=== PATIENT | male | born 1970 | race Caucasian/White ===

== ENCOUNTER 2025-01-01 12:19 | Emergency (ER) | payer MEDICAID, SELFPAY ==
[2025-01-01 12:31] VITALS: BP 98/64; PULSE 97; RESP 18; TEMP 36.5; O2SAT 99; BMI 29.2
--- NOTE | 2025-01-01 12:34 | XR_ITS ---
WS: [id number] Exam: XR tibia fibula LT 2V [id number] Date/Time of Exam: 01/01/2025 12:34 PM Reason For Exam: dog bite No fracture noted. Articular relationships at the knee and ankle are normal as visualized. There may be a soft tissue injury along the upper lateral aspect of the lower leg. XR/XR tibia fibula LT 2V [id number] IMPRESSION: 1. No bony injury.
--- NOTE | 2025-01-01 12:35 | W.ED.ANIMALB ---
HPI - Animal Bite General: Chief Complaint: Animal Bite Stated Complaint: Dog Bite Time Seen by Provider: 01/01/25 12:31 Source: patient Mode of arrival: EMS Limitations: no limitations History of Present Illness: Patient is a 54-year-old male presents to ED today via EMS for evaluation of a dog bite. Patient states the dog is the neighbor's dog and is a menace and has attacked other people before. He knows nothing of the dog's immunization status. Patient states his last tetanus was 2 years ago. He sustained bite wounds to his left lower extremity and his right elbow. He is not having any bony tenderness to the elbow and has full range of motion here. He has scattered abrasions to the right lower extremity without much tenderness and nothing that requires closure. He does have multiple lacerations and puncture wounds to the left tib-fib area. He denies numbness, tingling, loss of sensation. MD complaint: animal bite Onset (ago): hour(s) Animal: dog Description of animal: immunizations unknown Mechanism: bite Location - Extremities: Right: elbow and Bilateral: lower leg Context: unprovoked Associated symptoms: Reports no associated symptoms Related Data Home Medications ?Medication ?Instructions ?Recorded ?Confirmed amoxicillin 875 mg-potassium 1 tab PO Q12H 01/01/25 01/01/25 clavulanate 125 mg tablet atorvastatin 20 mg tablet 20 mg PO DAILY 01/01/25 01/01/25 cyclobenzaprine 10 mg tablet 20 mg PO BID 01/01/25 01/01/25 donepezil 10 mg tablet 10 mg PO QPM 01/01/25 01/01/25 fluticasone propionate 50 2 spray intranasal DAILY 01/01/25 01/01/25 mcg/actuation nasal spray,suspension lisinopril 10 1 tab PO DAILY 01/01/25 01/01/25 mg-hydrochlorothiazide 12.5 mg tablet naloxone 4 mg/actuation nasal 4 mg intranasal PRN PRN OVERDOSE 01/01/25 01/01/25 spray (Narcan) pregabalin 150 mg capsule 150 mg PO BID 01/01/25 01/01/25 ropinirole 2 mg tablet 2 mg PO BID 01/01/25 01/01/25 sildenafil 25 mg tablet 25 mg PO PRN PRN PRN 01/01/25 01/01/25 testosterone cypionate 200 mg/mL 200 mg IM Q28D 01/01/25 01/01/25 intramuscular oil Previous Rx's ?Medication ?Instructions ?Recorded amoxicillin 875 mg-potassium 1 tab PO BID #14 tabs 01/01/25 clavulanate 125 mg tablet hydrocodone 5 mg-acetaminophen 325 1 tab PO .q4-6 PRN pain #14 tabs 01/01/25 mg tablet Allergies Allergy/AdvReac Type Severity Reaction Status Date / Time No Known Allergies Allergy Verified 01/01/25 12:40 Physical Exam Const: COMMON NORMALS: average body habitus, patient oriented x3, no limitations, healthy appearing, alert and well nourished GENERAL APPEARANCE: cooperative and in distress (uncomfortable due to pain) Resp: COMMON NORMALS: normal respiratory effort and clear to auscultation bilaterally AUSCULTATION: clear to auscultation bilaterally Cardio: COMMON NORMALS: regular rate and regular rhythm RATE: regular rate RHYTHM: regular rhythm Extremity: COMMON NORMALS: full ROM and capillary refill normal GENERAL: Yes normal exam except as noted OTHER: all joints with full ROM; no tendon involvement; no vascular involvement; all extremities NV intact with intact sensation and distal pulses abrasions to R LE without any need for closure EXTREMITY IMAGE (FRONT):  1. laceration 2. laceration 3. 4. 5. 3 scattered punture topete 6. laceration Neuro: COMMON NORMALS: patient oriented x3, moves all extremities, no focal motor deficits and no sensory deficits noted SENSORIUM/ORIENTATION: Yes alert Skin: NARRATIVE SKIN EXAM: dog bites-see above Procedures Laceration Laceration 1: Site: lower extremity Side (If applicable): left Size (cm): 4 Description: linear Depth: simple, single layer Local Anesthetic: lidocaine 2% Amount of anesthesia used (mL): 3.0 Pre-repair: wound explored and irrigated extensively Skin layer closed with: nylon Size (cm): 4-0 Number of sutures: 9 Technique: simple, interrupted Laceration 2: Site: lower extremity Side (If applicable): left Size (cm): 1.5 Description: linear Depth: simple, single layer Local Anesthetic: lidocaine 2% Amount of anesthesia used (mL): 1.5 Pre-repair: wound explored and irrigated extensively Skin layer closed with: nylon Size (cm): 4-0 Number of sutures: 2 Technique: simple, interrupted Laceration 3: Site: upper extremity (elbow) Side (If applicable): right Size (cm): 2.5 Description: irregular Depth: simple, single layer Local Anesthetic: lidocaine 2% Amount of anesthesia used (mL): 2.0 Pre-repair: wound explored and irrigated extensively Skin layer closed with: nylon Size (cm): 4-0 Number of sutures: 5 Technique: simple, interrupted Course Vital Signs: Vital signs: Vital Signs Temperature 97.7 F 01/01/25 12:31 Pulse Rate 97 01/01/25 12:31 Respiratory Rate 21 H 01/01/25 13:16 Blood Pressure 98/64 01/01/25 12:31 Pulse Oximetry 99 01/01/25 12:31 Oxygen Delivery Me thod Room Air 01/01/25 12:31 MDM - Animal Bite Medical Decision Making XRs of the L tib/fib performed and negative. No obvious tendon trauma noted. He did have multiple lacerations and puncture wounds to the left lower extremity that were copiously irrigated and repaired. He had a laceration to the right elbow. 19 stitches total were placed. Tetanus is up-to-date. He will be placed on Augmentin. He was started on rabies PEP. Strict return ED precautions discussed. Wound care/infection precautions discussed. Please officer was here to take report. Differential Diagnosis Likely bite by animal and dog bite Medical Records I reviewed the patient's medical records. Lab Data Radiology Impressions Tibia/Fibula X-Ray 01/01/25 12:34 IMPRESSION: 1. No bony injury. All radiology interpretation(s) finalized by discharge Discharge Plan Discharge Patient Disposition: Home Clinical Impression: Bite by animal, Dog bite Condition: Stable Prescriptions: New hydrocodone-acetaminophen 5-325 mg tablet 1 tab PO .q4-6 PRN (Reason: pain) Qty: 14 0RF amoxicillin-pot clavulanate 875-125 mg tablet 1 tab PO BID Qty: 14 0RF No Action cyclobenzaprine 10 mg tablet 20 mg PO BID atorvastatin 20 mg tablet 20 mg PO DAILY donepezil 10 mg tablet 10 mg PO QPM sildenafil 25 mg tablet 25 mg PO PRN PRN (Reason: PRN) ropinirole 2 mg tablet 2 mg PO BID lisinopril-hydrochlorothiazide 10-12.5 mg tablet 1 tab PO DAILY testosterone cypionate 200 mg/mL oil 200 mg IM Q28D fluticasone propionate 50 mcg/actuation spray,suspension 2 spray intranasal DAILY amoxicillin-pot clavulanate 875-125 mg tablet 1 tab PO Q12H pregabalin 150 mg capsule 150 mg PO BID naloxone [Narcan] 4 mg/actuation spray,non-aerosol 4 mg INTRANASAL PRN PRN (Reason: OVERDOSE) Discharge Orders: Discharge ED (Routine); Ordered 01/01/25 Ordered By: Raisa Ellison Patient Instructions: Rabies Vaccine (By injection), Rabies Immune Globulin (By injection), Animal Bite (ED), Care For Your Stitches (DC), Laceration (DC), Opioid Safety, Pain Management Activity Restrictions/Additional Instructions: Keep wound/laceration clean with warm soap and water twice daily. Monitor for signs of infection such as redness, swelling, increased pain, or drainage. Please seek medical re-evaluation if these occur. If you received sutures today these will need to be removed (unless you were told by the provider that they are absorbable). The provider should have discussed with you the length of time until removal-7 to 10 days. Fill your antibiotics and start them immediately. You were given a schedule for the remainder of your rabies postexposure prophylaxis series to be completed through our infusion center. Print Language: Syrian Coding Level of Care Code ED Director Cpg for Emperatriz Mitchell
[2025-01-01] MEDS: ondansetron 2 mg/ML SDV 2 mL 4 MG IM (13:15)
[2025-01-01 13:16] VITALS: RESP 21
[2025-01-01] MEDS: morphine 4 mg/mL SDV 1 mL IM (13:16)
[2025-01-01] MEDS: rabies vaccine 2.5 unit SDV IM (13:19)
[2025-01-01] MEDS: rabies IG 300 unit/mL SDV 1 mL 1920 UNIT IM (13:36)
[2025-01-01 14:44] VITALS: BP 109/68; PULSE 94; O2SAT 94
== END 2025-01-01 14:46 | disposition home or self-care (01) ==
PROVIDERS: Emergency Provider Physician Assistant
DX: S81.852A Open bite, left lower leg, initial encounter (principal); S51.051A Open bite, right elbow, initial encounter; W54.0XXA Bitten by dog, initial encounter; Z29.14 Encounter for prophylactic rabies immune globulin; Z20.3 Contact with and (suspected) exposure to rabies
CPT/HCPCS: 12004; 73590; 90375; 90471; 90675; 96372; 99284; E0114; J2270; J2405

== ENCOUNTER 2025-01-04 11:18 | Day surgery (SDC) | payer MEDICAID, SELFPAY ==
[2025-01-04] VITALS (13 sets, daily range): BP systolic 104–136; BP diastolic 58–79; PULSE 76–100; RESP 10–18; TEMP 36.1–37.4; O2SAT 92–99
--- NOTE | 2025-01-04 11:51 | W.ED.RECABL ---
Documented by User: BOGDAN Carcamo 01/04/25 14:01 HPI - Recheck/Abnormal Lab/Rx General: Chief Complaint: Extremity Injury, Lower Stated Complaint: lt leg injury / rabies Time Seen by Provider: 01/04/25 11:21 Source: patient Mode of arrival: wheelchair Limitations: no limitations History of Present Illness: Patient is a 54-year-old male presents to ED today for concerns of a possible infection to a dog bite to his left lower extremity. Patient was seen here in the emergency department approximate 3 days ago. He sustained several dog bite wounds to his left lower extremity, minor abrasions to his right lower extremity, and a laceration near his right elbow. All wounds were copiously irrigated and repaired. He has been compliant with his Augmentin since discharge. His tetanus was updated at that visit. XRs of the left tibia/fibula were obtained at the last visit and unremarkable. He states he has noticed redness, mild warmth, and drainage from one of the incisions to the left leg. All of the other incisions appear to be healing well. He reports chills but no documented fevers. MD complaint: wound re-check Initial visit (ago): day(s) Initial visit for: animal bite Returns today for: wound recheck and rabies shot Symptoms since prior visit: worsening redness and worsening discharge Associated symptoms: chills Related Data Home Medications ?Medication ?Instructions ?Recorded ?Confirmed atorvastatin 20 mg tablet 20 mg PO DAILY 01/01/25 01/04/25 cyclobenzaprine 10 mg tablet 20 mg PO BID 01/01/25 01/04/25 donepezil 10 mg tablet 10 mg PO QPM 01/01/25 01/04/25 fluticasone propionate 50 2 spray intranasal DAILY 01/01/25 01/04/25 mcg/actuation nasal spray,suspension lisinopril 10 1 tab PO DAILY 01/01/25 01/04/25 mg-hydrochlorothiazide 12.5 mg tablet naloxone 4 mg/actuation nasal 4 mg intranasal PRN PRN OVERDOSE 01/01/25 01/04/25 spray (Narcan) pregabalin 150 mg capsule 150 mg PO BID 01/01/25 01/04/25 ropinirole 2 mg tablet 2 mg PO BID 01/01/25 01/04/25 sildenafil 25 mg tablet 25 mg PO PRN PRN PRN 01/01/25 01/04/25 testosterone cypionate 200 mg/mL 200 mg IM Q28D 01/01/25 01/04/25 intramuscular oil Previous Rx's ?Medication ?Instructions ?Recorded amoxicillin 875 mg-potassium 1 tab PO BID #14 tabs 01/01/25 clavulanate 125 mg tablet hydrocodone 5 mg-acetaminophen 325 1 tab PO .q4-6 PRN pain #14 tabs 01/01/25 mg tablet Allergies Allergy/AdvReac Type Severity Reaction Status Date / Time No Known Allergies Allergy Verified 01/01/25 12:40 Review of Systems Const: Reports: chills; Denies: fever(s), body aches, fatigue or malaise Card: Denies: chest pain Resp: Denies: dyspnea Musc: Reports: extremity pain and extremity swelling; Denies: joint pain, joint swelling or joint redness Skin/Breast: Reports: other (dog bite wounds/lacerations/abrasions) Neuro: Denies: headache(s), numbness in extremities, weakness in extremities or sensory changes Physical Exam Const: COMMON NORMALS: no acute distress, average body habitus, patient oriented x3, no limitations, healthy appearing, alert and well nourished Resp: COMMON NORMALS: normal respiratory effort and clear to auscultation bilaterally AUSCULTATION: clear to auscultation bilaterally Cardio: COMMON NORMALS: regular rate and regular rhythm RATE: regular rate RHYTHM: regular rhythm Extremity: COMMON NORMALS: capillary refill normal and no calf tenderness GENERAL: Yes normal exam except as noted OTHER: pain/edema to L lateral conn; he has multiple laceration repairs/puncture wounds from dog bite 3 days ago; most of these appear well healing apart from the larger lateral laceration which has surrounding erythema/warmth; and discharge from the wound patient does have pain here but can wiggle his toes and has flexion/extension of ankle joint-although painful I do not feel pain is out of proportion to exam; extremity is neurovascularly intact Neuro: COMMON NORMALS: patient oriented x3, moves all extremities, no focal motor deficits and no sensory deficits noted SENSORIUM/ORIENTATION: Yes alert Skin: NARRATIVE SKIN EXAM: see above; laceration near R elbow is well healing, puncture wounds/abrasions to bilateral LEs appear to be healing well; infection involving larger laceration L lateral lower leg Course Consultations: Consultation #1: Dr. Cheung-will take to OR for washout later today-requesting he stay for additional IV abx following debridement/washout; requesting CT scan with contrast; request adding Vanc to his Unasyn Vital Signs: Vital signs: Vital Signs Temperature 99.3 F 01/04/25 11:38 Pulse Rate 100 01/04/25 11:38 Respiratory Rate 16 01/04/25 11:38 Blood Pressure 117/66 01/04/25 11:38 Pulse Oximetry 92 01/04/25 11:38 Oxygen Delivery Me thod Room Air 01/04/25 11:38 MDM - Recheck/Abnormal Lab/Rx Medical Decision Making Patient is a 54-year-old male here with an infected dog bite wound involving the lateral aspect of the left lower leg. Patient has been compliant with his Augmentin since the wound was repaired 3 days ago. His tetanus was updated then. He is on day 3 of his rabies PEP so rabies vaccination was provided today. Spoke to Dr. Cheung who will plan for OR washout-he recommended patient stay overnight following this for additional IV antibiotics but patient adamantly declines. States he has to be home to take care of his dog. We discussed many options to try and get someone else to care for animal but again he declines and is adamant he goes home after the washout. He was started on IV antibiotics here in the ED. CT scan showing soft tissue edema compatible with infection/cellulitis. No drainable fluid collection or abscess. Labs show a normal white count. His vital signs are stable. He does have mildly elevated CRP/ESR. Medical Records I reviewed the patient's medical records. Lab Data I reviewed the patient's lab results. 01/04/25 12:24 01/04/25 12:24 Radiology Impressions Lower Extremity CT 01/04/25 12:17 IMPRESSION: 1. Diffuse prominent soft tissue edema involving the lower extremity extending from the knee to the ankle compatible with soft tissue infection and cellulitis. No evidence of drainable fluid collection or abscess at this time. 2. No evidence of osteomyelitis. Laboratory Results WBC 10.38 10^3/uL (3.29-11.43) 01/04/25 12:24 RBC 4.33 10^6/uL (3.85-5.65) 01/04/25 12:24 Hgb 12.10 g/dL (11.27-16.99) 01/04/25 12:24 Hct 37.5 % (37-53) 01/04/25 12:24 MCV 86.6 fl (82-101) 01/04/25 12:24 MCH 27.9 pg (27-33) 01/04/25 12:24 MCHC 32.3 g/dL (30-55) 01/04/25 12:24 RDW 13.7 % (12.1-15.1) 01/04/25 12:24 Plt Count 307 10^3/cmm (157-399) 01/04/25 12:24 MPV 9.5 fL (7.4-10.4) 01/04/25 12:24 Neut % (Auto) 75.0 % 01/04/25 12:24 Lymph % (Auto) 17.7 % 01/04/25 12:24 Camp % (Auto) 4.0 % 01/04/25 12:24 Eos % (Auto) 2.6 % 01/04/25 12:24 Baso % (Auto) 0.4 % 01/04/25 12:24 Neut # (Auto) 7.78 10^3/uL (1.8-7.7) H 01/04/25 12:24 Lymph # (Auto) 1.8 10^3/uL (0.8-4.8) 01/04/25 12:24 Camp # (Auto) 0.4 10^3/uL (0.2-0.9) 01/04/25 12:24 Eos # (Auto) 0.3 10^3/uL (0.0-0.8) 01/04/25 12:24 Baso # (Auto) 0.0 10^3/uL (0.0-0.1) 01/04/25 12:24 Nucleated RBC % (auto) 0 % 01/04/25 12:24 Nucleated RBCs # 0.0 /100WBC 01/04/25 12:24 ESR 31 mm/hr (0-10) H 01/04/25 12:24 Sodium 138 mmol/L (136-145) 01/04/25 12:24 Potassium 4.4 mmol/L (3.5-5.1) 01/04/25 12:24 Chloride 100 mmol/L (98-107) 01/04/25 12:24 Carbon Dioxide 24 mmol/L (22-29) 01/04/25 12:24 Anion Gap 18.4 (5-19) 01/04/25 12:24 BUN 18 mg/dL (6-20) 01/04/25 12:24 Creatinine 1.2 mg/dL (0.7-1.2) 01/04/25 12:24 GFR Calculation 63.1 mL/min (90-130) L 01/04/25 12:24 Glucose 94 mg/dL (65-115) 01/04/25 12:24 Calculated Osmolality 288 mOsm/kg (285-295) 01/04/25 12:24 Calcium 9.7 mg/dL (8.5-10.5) 01/04/25 12:24 Total Bilirubin 0.3 mg/dL (0.15-1.2) 01/04/25 12:24 AST 43 U/L (0-40) H 01/04/25 12:24 ALT 55 U/L (0-41) H 01/04/25 12:24 Alkaline Phosphatase 108 U/L (40-130) 01/04/25 12:24 C-Reactive Protein 51.0 mg/L (0.0-4.9) H 01/04/25 12:24 Total Protein 7.1 g/dL (6.6-8.7) 01/04/25 12:24 Albumin 3.8 g/dL (3.5-5.2) 01/04/25 12:24 Globulin 3.3 g/dL (1.3-4.6) 01/04/25 12:24 All radiology interpretation(s) finalized by discharge Discharge Plan Discharge Clinical Impression: Dog bite of left lower leg with infection Qualifiers: Encounter type: initial encounter Qualified Code(s): S81.852A - Open bite, left lower leg, initial encounter Condition: Stable Coding Level of Care Code ED Straw Boss for Jakeg Paula Documented by User: Dennis Tyson DO 01/04/25 14:11 HPI - Recheck/Abnormal Lab/Rx General: Chief Complaint: Extremity Injury, Lower Stated Complaint: lt leg injury / rabies Time Seen by Provider: 01/04/25 11:21 Related Data Home Medications ?Medication ?Instructions ?Recorded ?Confirmed atorvastatin 20 mg tablet 20 mg PO DAILY 01/01/25 01/04/25 cyclobenzaprine 10 mg tablet 20 mg PO BID 01/01/25 01/04/25 donepezil 10 mg tablet 10 mg PO QPM 01/01/25 01/04/25 fluticasone propionate 50 2 spray intranasal DAILY 01/01/25 01/04/25 mcg/actuation nasal spray,suspension lisinopril 10 1 tab PO DAILY 01/01/25 01/04/25 mg-hydrochlorothiazide 12.5 mg tablet naloxone 4 mg/actuation nasal 4 mg intranasal PRN PRN OVERDOSE 01/01/25 01/04/25 spray (Narcan) pregabalin 150 mg capsule 150 mg PO BID 01/01/25 01/04/25 ropinirole 2 mg tablet 2 mg PO BID 01/01/25 01/04/25 sildenafil 25 mg tablet 25 mg PO PRN PRN PRN 01/01/25 01/04/25 testosterone cypionate 200 mg/mL 200 mg IM Q28D 01/01/25 01/04/25 intramuscular oil Previous Rx's ?Medication ?Instructions ?Recorded amoxicillin 875 mg-potassium 1 tab PO BID #14 tabs 01/01/25 clavulanate 125 mg tablet hydrocodone 5 mg-acetaminophen 325 1 tab PO .q4-6 PRN pain #14 tabs 01/01/25 mg tablet Allergies Allergy/AdvReac Type Severity Reaction Status Date / Time No Known Allergies Allergy Verified 01/01/25 12:40 Course Vital Signs: Vital signs: Vital Signs Temperature 99.3 F 01/04/25 11:38 Pulse Rate 100 01/04/25 11:38 Respiratory Rate 16 01/04/25 11:38 Blood Pressure 117/66 01/04/25 11:38 Pulse Oximetry 92 01/04/25 11:38 Oxygen Delivery Me thod Room Air 01/04/25 11:38 MDM - Recheck/Abnormal Lab/Rx Medical Decision Making Patient is a 54-year-old male here with an infected dog bite wound involving the lateral aspect of the left lower leg. Patient has been compliant with his Augmentin since the wound was repaired 3 days ago. His tetanus was updated then. He is on day 3 of his rabies PEP so rabies vaccination was provided today. Spoke to Dr. Cheung who will plan for OR washout-he recommended patient stay overnight following this for additional IV antibiotics but patient adamantly declines. States he has to be home to take care of his dog. We discussed many options to try and get someone else to care for animal but again he declines and is adamant he goes home after the washout. He was started on IV antibiotics here in the ED. CT scan showing soft tissue edema compatible with infection/cellulitis. No drainable fluid collection or abscess. Labs show a normal white count. His vital signs are stable. He does have mildly elevated CRP/ESR. Chart reviewed and patient discussed with midlevel. Agree with assessment and plan. Lab Data 01/04/25 12:24 01/04/25 12:24 Radiology Impressions Lower Extremity CT 01/04/25 12:17 IMPRESSION: 1. Diffuse prominent soft tissue edema involving the lower extremity extending from the knee to the ankle compatible with soft tissue infection and cellulitis. No evidence of drainable fluid collection or abscess at this time. 2. No evidence of osteomyelitis. Laboratory Results WBC 10.38 10^3/uL (3.29-11.43) 01/04/25 12:24 RBC 4.33 10^6/uL (3.85-5.65) 01/04/25 12:24 Hgb 12.10 g/dL (11.27-16.99) 01/04/25 12:24 Hct 37.5 % (37-53) 01/04/25 12:24 MCV 86.6 fl (82-101) 01/04/25 12:24 MCH 27.9 pg (27-33) 01/04/25 12:24 MCHC 32.3 g/dL (30-55) 01/04/25 12:24 RDW 13.7 % (12.1-15.1) 01/04/25 12:24 Plt Count 307 10^3/cmm (157-399) 01/04/25 12:24 MPV 9.5 fL (7.4-10.4) 01/04/25 12:24 Neut % (Auto) 75.0 % 01/04/25 12:24 Lymph % (Auto) 17.7 % 01/04/25 12:24 Camp % (Auto) 4.0 % 01/04/25 12:24 Eos % (Auto) 2.6 % 01/04/25 12:24 Baso % (Auto) 0.4 % 01/04/25 12:24 Neut # (Auto) 7.78 10^3/uL (1.8-7.7) H 01/04/25 12:24 Lymph # (Auto) 1.8 10^3/uL (0.8-4.8) 01/04/25 12:24 Camp # (Auto) 0.4 10^3/uL (0.2-0.9) 01/04/25 12:24 Eos # (Auto) 0.3 10^3/uL (0.0-0.8) 01/04/25 12:24 Baso # (Auto) 0.0 10^3/uL (0.0-0.1) 01/04/25 12:24 Nucleated RBC % (auto) 0 % 01/04/25 12:24 Nucleated RBCs # 0.0 /100WBC 01/04/25 12:24 ESR 31 mm/hr (0-10) H 01/04/25 12:24 Sodium 138 mmol/L (136-145) 01/04/25 12:24 Potassium 4.4 mmol/L (3.5-5.1) 01/04/25 12:24 Chloride 100 mmol/L (98-107) 01/04/25 12:24 Carbon Dioxide 24 mmol/L (22-29) 01/04/25 12:24 Anion Gap 18.4 (5-19) 01/04/25 12:24 BUN 18 mg/dL (6-20) 01/04/25 12:24 Creatinine 1.2 mg/dL (0.7-1.2) 01/04/25 12:24 GFR Calculation 63.1 mL/min (90-130) L 01/04/25 12:24 Glucose 94 mg/dL (65-115) 01/04/25 12:24 Calculated Osmolality 288 mOsm/kg (285-295) 01/04/25 12:24 Calcium 9.7 mg/dL (8.5-10.5) 01/04/25 12:24 Total Bilirubin 0.3 mg/dL (0.15-1.2) 01/04/25 12:24 AST 43 U/L (0-40) H 01/04/25 12:24 ALT 55 U/L (0-41) H 01/04/25 12:24 Alkaline Phosphatase 108 U/L (40-130) 01/04/25 12:24 C-Reactive Protein 51.0 mg/L (0.0-4.9) H 01/04/25 12:24 Total Protein 7.1 g/dL (6.6-8.7) 01/04/25 12:24 Albumin 3.8 g/dL (3.5-5.2) 01/04/25 12:24 Globulin 3.3 g/dL (1.3-4.6) 01/04/25 12:24 Discharge Plan Discharge Clinical Impression: Dog bite of left lower leg with infection Qualifiers: Encounter type: initial encounter Qualified Code(s): S81.852A - Open bite, left lower leg, initial encounter Condition: Stable Coding Level of Care Code ED Straw Boss for Emperatriz Mitchell
--- NOTE | 2025-01-04 12:17 | CT_ITS ---
WS: [id number] Contrast-enhanced CT LEFT lower leg TECHNIQUE: with coronal and sagittal reformatted images. CLINICAL INFORMATION: dog bite infection COMPARISON: None. DLP: 507.[address] scans at [facility] use at least one of these dose optimization techniques: automated exposure control; mA and/or kV adjustment per patient size (includes targeted exams where dose is matched to clinical indication); or iterative reconstruction. FINDINGS: Normal anatomic alignment. No acute fractures. Diffuse soft tissue edema LEFT lower extremity. Normal fibula. Normal tibia. No acute fractures. Degenerative arthritis partially visualized knee and ankle. Diffuse soft tissue edema lower extremity with skin thickening and soft tissue induration extending from the knee to the ankle. Findings compatible with soft tissue infection and cellulitis. Edema extends into the intermuscular soft tissues. No drainable abscess or drainable fluid collection. CT/CT lower leg LT w con [id number] IMPRESSION: 1. Diffuse prominent soft tissue edema involving the lower extremity extending from the knee to the ankle compatible with soft tissue infection and celluliti s. No evidence of drainable fluid collection or abscess at this time. 2. No evidence of osteomyelitis.
[2025-01-04] MEDS: ondansetron 2 mg/ML SDV 2 mL 4 MG IVP ×2 (12:22→16:55)
[2025-01-04] MEDS: morphine 4 mg/mL SDV 1 mL IVP (12:22)
[2025-01-04 12:43] LABS: Basophils % 0.4 %; Eosinophils # 0.3 10^3/uL (0.0-0.8); Eosinophils % 2.6 %; Hematocrit 37.5 % (37-53); Lymphocytes # 1.8 10^3/uL (0.8-4.8); Lymphocytes % 17.7 %; Mean Corpuscular HGB Conc 32.3 g/dL (30-55); Mean Corpuscular Hemoglobin 27.9 pg (27-33); Mean Corpuscular Volume 86.6 fl (82-101); Mean Platelet Volume 9.5 fL (7.4-10.4); Monocytes # 0.4 10^3/uL (0.2-0.9); Neutrophils # 7.78 10^3/uL (1.8-7.7); Nucleated Red Blood Cells % 0 %; Platelet Count 307 10^3/cmm (157-399); Red Blood Count 4.33 10^6/uL (3.85-5.65); Red Cell Distribution Width 13.7 % (12.1-15.1); White Blood Count 10.38 10^3/uL (3.29-11.43)
[2025-01-04 12:48] LABS: Erythrocyte Sedimentation Rate 31 mm/hr (0-10)
[2025-01-04] MEDS: iohexol 350 mg/mL 500 mL Btl (per mL) IV (12:52)
[2025-01-04] MEDS: ampicillin-sulbactam 3 GM in sodium chloride 0.9% (plus) 50 ML IV (12:52)
[2025-01-04 13:07] LABS: Alanine Aminotransferase 55 U/L (0-41); Albumin Level 3.8 g/dL (3.5-5.2); Alkaline Phosphatase 108 U/L (40-130); Anion Gap 18.4 (5-19); Aspartate Amino Transferase 43 U/L (0-40); Blood Urea Nitrogen 18 mg/dL (6-20); Calcium 9.7 mg/dL (8.5-10.5); Carbon Dioxide 24 mmol/L (22-29); Chloride 100 mmol/L (98-107); Globulin 3.3 g/dL (1.3-4.6); Glomerular Filtration Rate 63.1 mL/min (90-130); Glucose 94 mg/dL (65-115); Osmolality Calculated 288 mOsm/kg (285-295); Potassium 4.4 mmol/L (3.5-5.1); Sodium 138 mmol/L (136-145); Total Bilirubin 0.3 mg/dL (0.15-1.2); Total Protein 7.1 g/dL (6.6-8.7)
[2025-01-04] MEDS: vancomycin 1,250 MG/250 ML PIGGYBACK 166.67 MG IV (13:43)
[2025-01-04] MEDS: sodium chloride 0.9% 1,000 ML 30 ML IV (14:53)
[2025-01-04] MEDS: acetaminophen 1,000 MG/100 ML PIGGYBACK 400 MG IV (14:54)
[2025-01-04] MEDS: ketorolac 30 mg/mL INJ IVP (14:55)
[2025-01-04] MEDS: fentaNYL 50 mcg/mL INJ 2mL IVP (15:00)
--- NOTE | 2025-01-04 15:01 | ANES.PREANE2 ---
Pre-Anesthetic Assessment Height/Weight: Height 1.8 m Weight 95.254 kg Temp Pulse Resp BP Pulse Ox O2 Del Method 98.2 F 80 17 105/60 99 Room Air 01/04/25 14:38 01/04/25 14:38 01/04/25 14:38 01/04/25 14:38 01/04/25 14:38 01/04/25 14:38 Operation Date: 01/04/25 16:40 Proposed Procedures p Debridement Lower Extremity(Left) - Jama Skye, DO Familial anesthetic complications: None Was Beta Gabe taken within 24 hours: N/A Was Clonidine taken within 24 hours: N/A Last intake: Dinner previous night; Last intake at 0900 Light meal of approximately 10 oz of milk Intake Last Liquid Date 01/04/25 Last Liquid Time 10:45 Last Solid Date 01/03/25 Last Solid Time 20:00 Social No alcohol and No tobacco Exam alert, oriented x 3, clear to auscultation bilaterally and regular rate & rhythm Airway Mallampati: Class II Dentition: chipped and other (missing, poor dentition) CV/HEM Hypertension Neuropsych Neuropathy Restless leg Anesthetic Plan ASA status: 2E Anesthesia: General Risk of > 500 ml blood loss (7ml/kg in children): No Medications/Allergies Home Medications ?Medication ?Instructions ?Recorded ?Confirmed ?Last Taken ?Type amoxicillin 875 mg-potassium 1 tab PO BID #14 tabs 01/01/25 01/04/25 Unknown Rx clavulanate 125 mg tablet atorvastatin 20 mg tablet 20 mg PO DAILY 01/01/25 01/04/25 01/04/25 History cyclobenzaprine 10 mg tablet 20 mg PO BID 01/01/25 01/04/25 01/01/25 History donepezil 10 mg tablet 10 mg PO QPM 01/01/25 01/04/25 01/03/25 History fluticasone propionate 50 2 spray intranasal DAILY 01/01/25 01/04/25 01/01/25 History mcg/actuation nasal spray,suspension hydrocodone 5 mg-acetaminophen 325 1 tab PO .q4-6 PRN pain #14 tabs 01/01/25 01/04/25 Unknown Rx mg tablet lisinopril 10 1 tab PO DAILY 01/01/25 01/04/25 01/04/25 History mg-hydrochlorothiazide 12.5 mg tablet naloxone 4 mg/actuation nasal 4 mg intranasal PRN PRN OVERDOSE 01/01/25 01/04/25 Unknown History spray (Narcan) pregabalin 150 mg capsule 150 mg PO BID 01/01/25 01/04/25 01/04/25 History ropinirole 2 mg tablet 2 mg PO BID 01/01/25 01/04/25 01/04/25 History sildenafil 25 mg tablet 25 mg PO PRN PRN PRN 01/01/25 01/04/25 Unknown History testosterone cypionate 200 mg/mL 200 mg IM Q28D 01/01/25 01/04/25 Unknown History intramuscular oil Allergies Allergy/AdvReac Type Severity Reaction Status Date / Time No Known Allergies Allergy Verified 01/01/25 12:40 Current Medications Generic Name Dose Route Start Last Admin Trade Name Freq PRN Reason Stop Dose Admin Sodium Chloride 1,000 mls @ 30 mls/hr 01/04/25 14:45 01/04/25 14:53 Sodium Chloride 0.9% IV 01/05/25 14:44 30 mls/hr .Q24H YANET Administration Data Anesthesia 01/04/25 12:24 01/04/25 12:24 Short CBC 01/04/25 Range/Units 12:24 WBC 10.38 (3.29-11.43) 10^3/uL Hgb 12.10 (11.27-16.99) g/dL Hct 37.5 (37-53) % MCV 86.6 (82-101) fl Plt Count 307 (157-399) 10^3/cmm Neut % (Auto) 75.0 % Neut # (Auto) 7.78 H (1.8-7.7) 10^3/uL BMP 01/04/25 12:24 Sodium 138 Potassium 4.4 Chloride 100 Carbon Dioxide 24 BUN 18 Creatinine 1.2 Glucose 94 Calcium 9.7 Liver Function 01/04/25 Range/Units 12:24 Total Bilirubin 0.3 (0.15-1.2) mg/dL AST 43 H (0-40) U/L ALT 55 H (0-41) U/L Alkaline Phosphatase 108 (40-130) U/L Albumin 3.8 (3.5-5.2) g/dL Coags 01/04/25 12:24 ESR 31 H C-Reactive Protein 51.0 H Microbiology 01/04/25 12:30 Blood Culture - Preliminary Blood SPECIMEN COLLECTED 01/04/25 12:24 Blood Culture - Preliminary Blood SPECIMEN COLLECTED Cardiac Studies: No Data to Display
--- NOTE | 2025-01-04 15:06 | PM.CONSULT ---
Providers/Reason For Consult Consulting Physician/Specialty*: Jama Cheung DO/orthopedic surgery Reason for Consult*: Left lower extremity dog bite infection/cellulitis, failure to respond to conservative treatment Requesting Physician: Raisa Ellison PA-C Attending Physician: Jama Cheung DO Primary Care Provider: El Stallworth History of Present Illness History of Present Illness Carter Silveira is a 54 year old male who presented to the emergency department today having worsening pain and drainage after a dog bite that was seen by emergency department on 01/01/2025 patient had been bedside irrigation debridement received antibiotics unfortunate is failure to respond to conservative treatment having worsening pain erythema as well as drainage out of the left anterolateral lower leg laceration/dog bite wound. CT scan showed no apparent abscess however patient does have worsening cellulitis as well as increased drainage over the site which is likely developing abscess given the failure to respond to conservative treatment we talked about his options in detail through shared decision making patient elects to proceed with a left lower extremity irrigation and debridement. We did talk about hospitalization afterwards for IV antibiotics for 24 hours at this point time he prefer to go home ultimately his WBC count is normal but he does have elevated inflammatory markers I feel at the very least he would benefit from an I&D today and if given he states he absolutely has to go home to care for his dog I feel once he is appropriate I&D of this area this should obtain better control as well as with antibiotics should be okay however he does understand the risk that he could potentially worsen if he goes home and may have to return. At this point in time he like to pursue surgical intervention today and understands importance of close monitoring and follow-up. Review of Systems General: Reports: 10 or more systems reviewed and unremarkable except in HPI and below Medications/Allergies Home Medications ?Medication ?Instructions ?Recorded ?Confirmed ?Last Taken ?Type amoxicillin 875 mg-potassium 1 tab PO BID #14 tabs 01/01/25 01/04/25 Unknown Rx clavulanate 125 mg tablet atorvastatin 20 mg tablet 20 mg PO DAILY 01/01/25 01/04/25 01/04/25 History cyclobenzaprine 10 mg tablet 20 mg PO BID 01/01/25 01/04/25 01/01/25 History donepezil 10 mg tablet 10 mg PO QPM 01/01/25 01/04/25 01/03/25 History fluticasone propionate 50 2 spray intranasal DAILY 01/01/25 01/04/25 01/01/25 History mcg/actuation nasal spray,suspension hydrocodone 5 mg-acetaminophen 325 1 tab PO .q4-6 PRN pain #14 tabs 01/01/25 01/04/25 Unknown Rx mg tablet lisinopril 10 1 tab PO DAILY 01/01/25 01/04/25 01/04/25 History mg-hydrochlorothiazide 12.5 mg tablet naloxone 4 mg/actuation nasal 4 mg intranasal PRN PRN OVERDOSE 01/01/25 01/04/25 Unknown History spray (Narcan) pregabalin 150 mg capsule 150 mg PO BID 01/01/25 01/04/25 01/04/25 History ropinirole 2 mg tablet 2 mg PO BID 01/01/25 01/04/25 01/04/25 History sildenafil 25 mg tablet 25 mg PO PRN PRN PRN 01/01/25 01/04/25 Unknown History testosterone cypionate 200 mg/mL 200 mg IM Q28D 01/01/25 01/04/25 Unknown History intramuscular oil amoxicillin 875 mg-potassium 1 tab PO BID 7 days #14 tabs 01/04/25 Unknown Rx clavulanate 125 mg tablet aspirin 81 mg tablet,delayed 81 mg PO DAILY 2 weeks #14 tabs 01/04/25 Unknown Rx release Allergies Allergy/AdvReac Type Severity Reaction Status Date / Time No Known Allergies Allergy Verified 01/01/25 12:40 Current Medications Generic Name Dose Route Start Last Admin Trade Name Freq PRN Reason Stop Dose Admin Fentanyl 50 mcg 01/04/25 14:38 01/04/25 15:00 Fentanyl 50 Mcg/Ml Inj 2ml IVP 50 mcg Q10M PRN Administration Preop Pain Sodium Chloride 1,000 mls @ 30 mls/hr 01/04/25 14:45 01/04/25 14:53 Sodium Chloride 0.9% IV 01/05/25 14:44 30 mls/hr .Q24H YANET Administration Vitals/I&O/Wt Last Vital Signs Temp 98.2 F 01/04/25 14:38 Pulse 80 01/04/25 14:38 Resp 18 01/04/25 15:00 BP 105/60 01/04/25 14:38 Pulse Ox 93 01/04/25 15:00 O2 Del Method Room Air 01/04/25 14:38 Weight last 48 hrs Weight 210 lb Physical Exam Narrative: Examination of the patient has multiple previous dog bite wounds over the extremities of the body these all look to be healing well with no signs of erythema or drainage there is on the anterolateral aspect of the left lower leg patient is found to have the site previously close there is increased murky edematous drainage. The site is stitched and closed. Patient has significant tenderness over this area with increased drainage. Localized erythema/cellulitis and tenderness to palpation. No appreciable palpable fluctuance noted. Compartments are soft compressible no rapid progressing infection appreciated subcutaneous emphysema or bulla noted. Patient is able to wiggle toes plantarflex and dorsiflex ankle but does have some pain with ankle dorsiflexion and plantarflexion able to tolerate passive range of motion. Left lower extremity warm well-perfused brisk cap refill less than 2 seconds distal pulses palpable. Sensation intact light touch distally. Data 01/04/25 12:24 01/04/25 12:24 Micro: Microbiology 01/04/25 12:30 Blood Culture - Preliminary Blood SPECIMEN COLLECTED 01/04/25 12:24 Blood Culture - Preliminary Blood SPECIMEN COLLECTED Other CT: Radiologist's impression: Ordering Provider/Ordering MD: Raisa Ellison Date of Service: 01/04/25 Procedure(s): CT lower leg LT w con [id number] Accession Number(s): [id number] Report Number: [id number] WS: [id number] Contrast-enhanced CT LEFT lower leg TECHNIQUE: with coronal and sagittal reformatted images. CLINICAL INFORMATION: dog bite infection COMPARISON: None. DLP: 507.[address] scans at [facility] use at least one of these dose optimization techniques: automated exposure control; mA and/or kV adjustment per patient size (includes targeted exams where dose is matched to clinical indication); or iterative reconstruction. FINDINGS: Normal anatomic alignment. No acute fractures. Diffuse soft tissue edema LEFT lower extremity. Normal fibula. Normal tibia. No acute fractures. Degenerative arthritis partially visualized knee and ankle. Diffuse soft tissue edema lower extremity with skin thickening and soft tissue induration extending from the knee to the ankle. Findings compatible with soft tissue infection and cellulitis. Edema extends into the intermuscular soft tissues. No drainable abscess or drainable fluid collection. CT/CT lower leg LT w con [id number] IMPRESSION: 1. Diffuse prominent soft tissue edema involving the lower extremity extending from the knee to the ankle compatible with soft tissue infection and cellulitis. No evidence of drainable fluid collection or abscess at this time. 2. No evidence of osteomyelitis. A&P Assessment and plan (1) Dog bite of left lower leg with infection: Qualifiers: Encounter type: initial encounter Qualified Code(s): S81.852A - Open bite, left lower leg, initial encounter; L08.9 - Local infection of the skin and subcutaneous tissue, unspecified; W54.0XXA - Bitten by dog, initial encounter (2) Dog bite: Plan Maintain n.p.o. status IV antibiotics Elevation CT scan reviewed Labs reviewed Patient currently getting rabies vaccine and request to have his second rabies vaccine injection while he is in surgery today. Plan to take to the OR today for left lower extremity irrigation and debridement MDM: Patient is a 54-year-old male who sustained a dog bite to multiple areas of the extremities predominantly today he is having worsening pain and cellulitis and inflammation as well as drainage increased over the left lower extremity anterior lateral wound. This has been previously close up in the emergency department back in 01/01/2025. Patient had been on oral antibiotics this is worsening having increasing pain in this area as well as increasing drainage. CT scan today shows no drainable abscess but likely consistent cellulitis given his increasing drainage failed respond to conservative treatment I feel he would next step would be for left lower extremity irrigation and debridement which we talked about in detail. We talked about the ins and outs procedure the risk benefits complication alternatives of surgery. Risk of surgically nonlimited to make it better, make it worse, wound complications, persistent infection possible further surgery. Understanding his risk for surgery elects proceed with surgical intervention all questions have been answered at this time. At this point in time he is adamant requests to be able to discharge today given his white count is not elevated and his inflammatory markers are elevated I feel he would at the very least benefit from an I&D today. I feel given this has not developed into an abscess I feel appropriate I&D in the emergency department as well as close postoperative follow-up in the outpatient setting would be appropriate in this case he does understand the recommendations wish to proceed with OR today and discharge. At this point in time he understands importance of close follow-up and if anything is worsening to represent to the emergency department but at this point time we will go ahead and take patient to the OR today as he has been n.p.o. with plan to open this up obtain cultures, close this loosely as well as place a [place] drain to help with drainage to prevent any accumulation. Once again patient understands agrees with current plan. Questions answered. PDMP PDMP Reviewed: Not Reviewed Coding Level of Care Code Acute Code for [facility] Fwd Diagnoses Dog bite of left lower leg with infection S81.852A; L08.9; W54.0XXA Encounter type: initial encounter Dog bite W54.0XXA Time Spent (min) 45
--- NOTE | 2025-01-04 15:07 | W.PM.OPSUD ---
Surgery/Procedure H&P Update DATE OF PROCEDURE: January 04, 2025 DATE H&P PERFORMED: 01/04/25 H&P UPDATE INFORMATION: I have reviewed H&P completed within last 30 days, I have examined patient prior to procedure and No changes to prior documentation PREOP DIAGNOSIS: Left lower extremity infected dog bite wound PRIMARY INDICATION FOR PROCEDURE: Left lower extremity infected dog bite wound, failure to respond to conservative treatment PLANNED PROCEDURE: Operation Date: 01/04/25 16:40 Proposed Procedures p Debridement Lower Extremity(Left) - Jama Cheung DO
[2025-01-04] MEDS: ceFAZolin 2,000 MG in sodium chloride 0.9% (plus) 50 ML 100 MG IV (15:27)
[2025-01-04] MEDS: ROPivacaine 0.5% SDV 30 mL 25 MG INJECTION (15:53)
[2025-01-04] MEDS: lidocaine 1% 10 ML INJ 5 ML INJECTION (15:54)
[2025-01-04] MEDS: rabies vaccine 2.5 unit SDV IM (16:00)
--- NOTE | 2025-01-04 16:27 | P.BOP_ITS ---
Date of Procedure: [January 04, 2025] Surgeon: [Dr. Cheung DO] Workers Compensation Coordinator(s): [Beau Cheung PA-C] Procedure(s) performed: [Left lower extremity wound irrigation and debridement (6 cm x 3 cm x 2 cm)] Findings of the procedure(s): [Left lower extremity wound with accumulated ab scess. Procedure went well and as planned.] Estimated blood loss: [5 mL] Specimen(s) removed: [Wound cultures obtained and sent to lab] Post-operative diagnosis: [Left lower extremity wound with accumulated abscess]
--- NOTE | 2025-01-04 16:30 | PM.PACU ---
PACU note Narrative: Patient is a 54-year-old male that just underwent a left lower extremity irrigation and debridement. Pt transferred to PACU in stable condition. Dressing is dry. pt is awake and alert. Boot on foot is placed. Pt can wiggle toes. Distal pulses are palpable toes are warm and well-perfused. Cap refill is normal and under 2 seconds. Sensation to foot is intact. Pain is controlled. Exam: awake Disposition: discharged
--- NOTE | 2025-01-04 16:31 | PM.OP ---
Operative Report Date of procedure: January 04, 2025 Pre-op diagnosis: Left lower extremity infected dog bite wound, failure to respond to conservative treatment Post-op diagnosis: Same, with cellulitis, no focal accumlation abscess noted Post-op findings: See operative report narrative Procedure done: Left lower extremity irrigation and debridement (6 cm x 3 cm x 2 cm) Specimens removed/disposition: Aerobic and anaerobic cultures taken of wound bed left lower extremity Surgeon: Jama Cheung DO Property Field Inspector: Beau Cheung PA-C: BOGDAN was necessary for assistance in this case with leg positioning retraction and protection of neurovascular structures as well as assistance in irrigation and debridement, wound closure and dressing application. Anesthesia: General Estimated blood loss: 5mL 23min IV fluids: 600mL Urine output: none Complications: none Findings: see op note Condition: stable Disposition: same day Brief History: Patient is a pleasant 54-year-old male who sustained a dog bite back on 01/01/2025 seen by in the emergency department was treated with bedside irrigation debridement and closure. Unfortunately he is presenting today after being on Augmentin with worsening pain and cellulitis and increasing drainage at his anterior lateral lower leg laceration. At this point in time given his failure to respond to conservative treatment was seen evaluated with increase in drainage CT scan demonstrates no abscess but given his worsening pain and drainage recommend taking this back to the OR for left lower extremity irrigation and debridement. We talked about the ins and outs procedure the risk benefits complication alternatives of surgery and through shared decision making patient like to proceed with surgical intervention all questions answered at this time. Will take him back to the OR today. Procedure: Patient was seen about in the preoperative holding area. Consent was reviewed and signed with patient. Correct extremity was then subsequently marked. Patient was then seen evaluated by anesthesia once cleared for surgery was taken back to the operative suite kept on [facility]. Patient then underwent anesthesia per the anesthesia department. Once prepped anesthetized a nonsterile tourniquet was applied to the left thigh. The left lower extremity was then prepped and draped standard orthopedic fashion. Final timeout performed. Patient received appropriate perioperative antibiotics. Elevation was performed to the left lower extremity and tourniquet was insufflated to a 250 mmHg. At this point time I utilized scissors to remove the previously closed laceration on the anterolateral calf as well as the 2 small stitches placed and 2 small pokes just proximal to this that did have no signs of erythema. At this point in time I then used blunt dissection with blunt hemostats and came down directly over the wound bed. At this point in time there is no focalized abscess I did culture the fluid in this area which was a period of just murky edematous fluid. Patient appeared to have cellulitis in this area. Patient did have some disruption of the fascia distally. The entire wound bed was 6 cm x 3 cm x 2 cm. At this point in time I thoroughly irrigated with 3 L of normal saline. I then subsequently debrided with sharp scalpel excision as well as rongeur and curette of skin and subcutaneous tissue fascia and muscle. There was a disruption of the fascia. At this point in time I utilized blunt dissection to decompress and make sure there is no abscess throughout this wound bed. Once I was satisfied with this and soak this in diluted Betadine solution for 5 minutes then this was thoroughly irrigated once more with 6 more liters of normal saline. This then completed our irrigation and debridement I then subsequently placed 2 simple interrupted 0 Vicryl plus sutures in the fascia just to prevent from herniation this was completely shredded and tore but was able to be reapproximated reasonably well. Next I then laid a [place] drain and then loosely closed this with simple interrupted nylon suture at the skin level tourniquet was deflated hemostasis was satisfactory. This was then dressed with Xeroform 4 x 4's ABDs Kerlix Jered wrap the patient was then placed in a cam boot. Patient was awakened from anesthesia taken back to PACU stable condition. Disposition: Patient taken back in stable condition recovering well will be allowed to weight-bear as tolerated in the cam walking boot. Appropriate instructions for drain management to have this removed within the next 2 to 3 days. Patient to continue p.o. Augmentin. Will follow-up in 10 to 14 days. Patient understands and agrees with current plan. All questions answered.
[2025-01-04] MEDS: metoclopramide 5 mg/mL SDV 2 mL 10 MG IVP (17:00)
--- NOTE | 2025-01-04 17:45 | ANE.PACU2 ---
Inpatient post-anesthesia follow up: Airway intact: Yes Vital signs: Temperature 97.0 F Pulse Rate 76 Respiratory Rate 18 Blood Pressure 124/73 Pulse Oximetry 98 Oxygen Delivery Me thod Room Air Oxygen Flow Rate 8 Fraction of Inspir ed Oxygen Hydration adequate: Yes Nausea and vomiting: No Pain level: 1 Mental status: Baseline
== END 2025-01-04 17:42 | disposition home or self-care (01) ==
LOC: ER 11:51 → OR 14:10
PROVIDERS: Emergency Provider Physician Assistant; PCP Family Medicine; Visit Provider Student in an Organized Health Care Education/Training Program
PROC: (CPT 11043; principal; 2025-01-04 16:30)
DX: S81.852A Open bite, left lower leg, initial encounter (principal); L03.116 Cellulitis of left lower limb; W54.0XXA Bitten by dog, initial encounter; Z79.899 Other long term (current) drug therapy; Z88.5 Allergy status to narcotic agent; Z88.0 Allergy status to penicillin; Z23 Encounter for immunization
CPT/HCPCS: 11043; 36415; 73701; 80053; 85025; 85651; 86140; 87040; 87070; 87075; 87205; 90675; 96365; 96366; 96367; 96375; 99285; J0131; J0295; J0690; J1100; J1885; J2250; J2270; J2405; J2704; J2765; J2795; J3010; J3370; J7030; J9999

== ENCOUNTER 2025-01-08 15:04 | Oncology outpatient (recurring) (ONCR) | payer MEDICAID, SELFPAY ==
[2025-01-08] MEDS: rabies vaccine 2.5 unit SDV IM (15:45)
== END 2025-01-09 23:59 | disposition home or self-care (01) ==
LOC: ONCMED 15:04
PROVIDERS: PCP Family Medicine; Visit Provider Physician Assistant
DX: Z23 Encounter for immunization (principal); Z20.3 Contact with and (suspected) exposure to rabies; S81.852A Open bite, left lower leg, initial encounter; W54.0XXA Bitten by dog, initial encounter
CPT/HCPCS: 90471; 90675

== ENCOUNTER 2025-01-15 13:15 | Oncology outpatient (recurring) (ONCR) | payer MEDICAID, SELFPAY ==
--- NOTE | 2025-01-15 13:25 | USCV_ITS ---
Carter Silveira Age: 54 Gender: M : 1970 Exam Date: 01/15/2025 13:29 Ordering Phys: Suzy Fairbanks Technologist: JIM Exam Location: [facility] [place] [facility] [place] Indication: LLE Pain. Dog bit x2 weeks ago HISTORY: Lower extremity pain. Dog bite x 2 weeks ago PROCEDURES: Venous duplex imaging was performed in only the left lower extremity. The following venous structures were evaluated: common femoral vein, profunda vein, proximal portion of the greater saphenous vein, superficial femoral vein, and the popliteal vein. In addition, the posterior tibial and peroneal trunk were evaluated. Serial compression, augmentation maneuvers, and spectral Doppler flow evaluation were performed. FINDINGS: No evidence of DVT seen in any vessel visualized at this time. CONCLUSIONS No evidence of left lower extremity DVT. Wilian Garcia MD (Electronically Signed) Final Date: 15 Jan 2025 16:22 S
[2025-01-15] MEDS: rabies vaccine 2.5 unit SDV IM (14:47)
[2025-01-15 14:51] VITALS: BP 144/88; PULSE 89; RESP 18; TEMP 36.5; O2SAT 94
== END 2025-02-09 23:59 | disposition home or self-care (01) ==
LOC: RAD 13:19 → ONCMED 13:46
PROVIDERS: PCP Family Medicine
DX: S81.852A Open bite, left lower leg, initial encounter (principal); L08.9 Local infection of the skin and subcutaneous tissue, unspecified; W54.0XXA Bitten by dog, initial encounter; M79.662 Pain in left lower leg
CPT/HCPCS: 90471; 90675; 93971

== ENCOUNTER 2025-01-16 16:46 | Emergency (ER) | payer MEDICAID, SELFPAY ==
[2025-01-16 16:49] VITALS: BP 105/48; PULSE 77; RESP 16; TEMP 36.6; O2SAT 97
[2025-01-16 17:00] VITALS: BP 109/72; PULSE 81; O2SAT 93
--- NOTE | 2025-01-16 17:27 | W.ED.WOUNDLC ---
HPI - Wound/Laceration General: Chief Complaint: Wound/Laceration Stated Complaint: ripped left leg wound open Time Seen by Provider: 01/16/25 16:56 History of Present Illness: 54-year-old male presents emergency room he has a wound on his left lower leg. This was previously sutured became infected. He has been following up with the wound care clinic. There is no signs of infection at this time. He had hit the wound that had reopened he applied superglue at home and then reapproximated he wanted to be evaluated is not actively bleeding no signs of infection Associated symptoms: Denies chills or fever(s) Related Data Home Medications ?Medication ?Instructions ?Recorded ?Confirmed atorvastatin 20 mg tablet 20 mg PO DAILY 01/01/25 01/16/25 cyclobenzaprine 10 mg tablet 20 mg PO BID 01/01/25 01/16/25 donepezil 10 mg tablet 10 mg PO QPM 01/01/25 01/16/25 fluticasone propionate 50 2 spray intranasal DAILY 01/01/25 01/16/25 mcg/actuation nasal spray,suspension lisinopril 10 1 tab PO DAILY 01/01/25 01/16/25 mg-hydrochlorothiazide 12.5 mg tablet naloxone 4 mg/actuation nasal 4 mg intranasal PRN PRN OVERDOSE 01/01/25 01/16/25 spray (Narcan) pregabalin 150 mg capsule 150 mg PO BID 01/01/25 01/16/25 ropinirole 2 mg tablet 2 mg PO BID 01/01/25 01/16/25 sildenafil 25 mg tablet 25 mg PO PRN PRN PRN 01/01/25 01/16/25 testosterone cypionate 200 mg/mL 200 mg IM Q28D 01/01/25 01/16/25 intramuscular oil Previous Rx's ?Medication ?Instructions ?Recorded amoxicillin 875 mg-potassium 1 tab PO BID #14 tabs 01/01/25 clavulanate 125 mg tablet hydrocodone 5 mg-acetaminophen 325 1 tab PO .q4-6 PRN pain #14 tabs 01/01/25 mg tablet aspirin 81 mg tablet,delayed 81 mg PO DAILY 2 weeks #14 tabs 01/04/25 release Allergies Allergy/AdvReac Type Severity Reaction Status Date / Time No Known Allergies Allergy Verified 01/16/25 16:54 Review of Systems Const: Denies: fever(s) or chills Physical Exam Skin: OTHER: Wound does not appear infected the edges are well-approximated from superglue patient had applied. Steri-Strips applied to the wound. Course Vital Signs: Vital signs: Vital Signs Temperature 97.9 F 01/16/25 16:49 Pulse Rate 81 01/16/25 17:00 Respiratory Rate 16 01/16/25 16:49 Blood Pressure 109/72 01/16/25 17:00 Pulse Oximetry 93 01/16/25 17:00 MDM - Wound/Laceration Medical Decision Making Wound reinforced with Steri-Strips follow-up with primary care wound care clinic he has already had tetanus updated. Medical Records I reviewed the patient's medical records. No radiology studies performed this visit Discharge Plan Discharge Patient Disposition: Home Clinical Impression: Dog bite of left lower leg Condition: Stable Prescriptions: No Action cyclobenzaprine 10 mg tablet 20 mg PO BID atorvastatin 20 mg tablet 20 mg PO DAILY donepezil 10 mg tablet 10 mg PO QPM sildenafil 25 mg tablet 25 mg PO PRN PRN (Reason: PRN) ropinirole 2 mg tablet 2 mg PO BID lisinopril-hydrochlorothiazide 10-12.5 mg tablet 1 tab PO DAILY testosterone cypionate 200 mg/mL oil 200 mg IM Q28D fluticasone propionate 50 mcg/actuation spray,suspension 2 spray intranasal DAILY pregabalin 150 mg capsule 150 mg PO BID naloxone [Narcan] 4 mg/actuation spray,non-aerosol 4 mg INTRANASAL PRN PRN (Reason: OVERDOSE) hydrocodone-acetaminophen 5-325 mg tablet 1 tab PO .q4-6 PRN (Reason: pain) Qty: 14 0RF amoxicillin-pot clavulanate 875-125 mg tablet 1 tab PO BID Qty: 14 0RF aspirin 81 mg tablet,delayed release (DR/EC) 81 mg PO DAILY 14 Days Qty: 14 0RF Discharge Orders: Discharge ED (Routine); Ordered 01/16/25 Ordered By: Dennis Tyson Referrals: El Stallworth [Primary Care Provider, Family Practice] Discharge Diet: Usual diet Discharge Activity: Resume usual activity Patient Instructions: Opioid Safety, Pain Management Activity Restrictions/Additional Instructions: Thank you for choosing [facility] for your healthcare needs today. It is very important that you follow up as instructed or that you return to the Emergency Department should you have concerns or if your condition changes or worsens in any way. You are seen today with a complication of the wound in your left lower leg. He had already applied superglue to the wound it was reinforced with Steri-Strips. Watch for signs of infection and return if you have any complications. Follow-up with your primary care doctor wound care clinic Print Language: Frisian Coding Level of Care Code ED Client Delivery Specialist for Emperatriz Mitchell
[2025-01-16 17:38] VITALS: BP 109/72; PULSE 86; O2SAT 98
== END 2025-01-16 17:39 | disposition home or self-care (01) ==
PROVIDERS: Emergency Provider Family Medicine; PCP Family Medicine
DX: S81.852D Open bite, left lower leg, subsequent encounter (principal); W54.0XXD Bitten by dog, subsequent encounter; Z79.82 Long term (current) use of aspirin
CPT/HCPCS: 99282

== ENCOUNTER → 2025-03-13 15:36 | Outpatient (BNVA) | payer MEDICAID, SELFPAY | PROVIDERS: PCP Family Medicine; Visit Provider Student in an Organized Health Care Education/Training Program | DX: S49.91XA Unspecified injury of right shoulder and upper arm, initial encounter (principal); M75.101 Unspecified rotator cuff tear or rupture of right shoulder, not specified as traumatic; X58.XXXA Exposure to other specified factors, initial encounter | CPT/HCPCS: 20610; 99214; J3301; J9999 ==

== ENCOUNTER 2025-07-03 17:42 | Emergency (ER) | payer MEDICAID, SELFPAY ==
[2025-07-03 17:44] VITALS: BP 125/74; PULSE 86; TEMP 36.8; O2SAT 95; BMI 29.9
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
[2025-07-03] MEDS: neomycin-poly-bacitracin oint 28 gm 1 APPLIC TOPICAL (18:10)
[2025-07-03] MEDS: HYDROcodone-acetaminophen 5-325 mg Tablet 1 TAB PO (18:10)
--- OUTSIDE RECORDS SUMMARY | 2025-07-03 18:46 | XMS_ITS | Clinical Summary ---
Author Organization [facility] [place] [place] Address [address] [place] [address] Phone Care Team Providers Care Board Mixer Tender Name Role Phone El Stallworth MD Primary Care Provider [phone] Allergies Active Allergy Reactions Criticality Noted Date Comments Sutures Other (See Comments) 11/16/2016 They just tend to get infected if they are in for more than 10 days Medications atorvastatin (LIPITOR) 20 mg tabletIndications :Mixed hyperlipidemia Take 1 Tablet (20 mg) by mouth daily. 100 Tablet 3 024 Active Additional Information Patient not taking.Reported on 02/08/2025 diclofenac sodium (VOLTAREN) 1 % gelIndications:Ch ronic bilateral low back pain with bilateral sciatica,Chronic neck pain Apply 2 Grams to affected area 4 times daily. 100 Gram 2 024 Active lisinopril-hydroC HLOROthiazide (ZESTORETIC) 10-12.5 mg tabletIndications :Benign hypertension Take 1 Tablet by mouth daily. Dose decrease 100 Tablet 3 025 Active Syringe with Needle, Disp, (BD Luer-Ania Syringe) 3 mL 23 x 1 Syringe USE 1 SYRINGE ONCE EVERY MONTH 1 Each 1 025 Active traMADoL (ULTRAM) 50 mg tablet Take 1 Tablet by mouth every 6 hours as needed. Active Narcan 4 mg/actuation [place], Non-Aerosol Administer in one nostril (alternate nostril with each dose) one time as needed. 025 Active donepeziL (ARICEPT) 10 mg tabletIndications :Memory change Take 1 Tablet (10 mg) by mouth daily at bedtime. 100 Tablet 3 025 Active Additional Information Patient not taking.Reported on 02/08/2025 sildenafiL (VIAGRA) 25 mg tabletIndications :Other male erectile dysfunction Take 3 Tablets (75 mg) by mouth 1 time daily as needed for Erectile Dysfunction. 60 Tablet 2 Active fluticasone propionate (FLONASE) 50 mcg/spray [place], Suspension nasal inhalerIndication s:Acute non-recurrent pansinusitis Administer 2 Sprays in each nostril daily. 16 Gram Active ondansetron (ZOFRAN ODT) 4 mg Tablet, Rapid Dissolve DISSOLVE 1 TABLET IN MOUTH EVERY 8 HOURS NEEDED FOR NAUSEA AND VOMITING FOR 3 DAYS Active testosterone cypionate (DEPO-TESTOSTERON E) 200 mg/mL OilIndications:Hy pogonadism in male Inject 1 mL (200 mg) by intramuscular injection every 2 weeks. 2 mL 2 Active nystatin (MYCOSTATIN) 100,000 unit/mL suspensionIndicat ions:Tongue burning sensation Take 5 mL (500,000 Units) by mouth 4 times daily. 473 mL Active pregabalin (LYRICA) 200 mg CapsuleIndication s:Chronic bilateral low back pain with bilateral sciatica,Chronic neck pain,Primary osteoarthritis of right knee,Bilateral rotator cuff syndrome Take 1 Capsule (200 mg) by mouth every 12 hours. Dose adjustment 60 Capsule 2 025 Active HYDROcodone-aceta minophen (NORCO) 7.5-325 mg TabletIndications :Chronic bilateral low back pain with bilateral sciatica,Chronic neck pain,Chronic right shoulder pain,Neuropathy Take 1 Tablet by mouth every 8 hours as needed for Pain, Moderate. Dose adjustment Max Daily Amount: 3 Tablets 21 Tablet 025 Active baclofen (LIORESAL) 10 mg tablet TAKE 1 TABLET BY MOUTH TWICE DAILY NEEDED FOR PAIN (DOSE INCREASE) 60 Tablet 2 025 Active rOPINIRole (REQUIP) 2 mg TabletIndications :RLS (restless legs syndrome) Take 2 Tablets (4 mg) by mouth daily at bedtime. 60 Tablet 5 025 Active rOPINIRole (REQUIP) 2 mg TabletIndications :RLS (restless legs syndrome) Take 2 Tablets (4 mg) by mouth daily at bedtime. 60 Tablet 5 025 2024 Discontinued(R eorder) baclofen (LIORESAL) 10 mg tablet Take 1 Tablet (10 mg) by mouth 2 times daily as needed for Pain. Dose increase 60 Tablet 2 025 2024 Discontinued HYDROcodone-aceta minophen (NORCO) 7.5-325 mg TabletIndications :Chronic bilateral low back pain with bilateral sciatica,Chronic neck pain,Chronic right shoulder pain,Neuropathy Take 1 Tablet by mouth every 8 hours as needed for Pain, Moderate. Dose adjustment Max Daily Amount: 3 Tablets 21 Tablet 025 2024 Discontinued(R eorder) Active Problems Problem Noted Date Diagnosed Date RLS (restless legs syndrome) 10/12/2024 Osteoarthritis of right knee 10/12/2024 Bilateral rotator cuff syndrome 10/12/2024 Hypogonadism in male 10/12/2024 Chronic right shoulder pain 08/17/2024 Memory loss 08/17/2024 Neuropathy 08/17/2024 Chronic bilateral low back pain with bilateral s ciatica 08/17/2024 Benign hypertension 08/17/2024 Chronic neck pain 08/17/2024 Other male erectile dysfunction 08/17/2024 Stage 3b chronic kidney disease 08/17/2024 Mixed hyperlipidemia 08/17/2024 Encounters Date Type Department Care Team Description 07/02/2025 External Device Data [facility] ABSTRACTION Provider, Abstract 07/02/[address] [address] El Stallworth MD RLS (restless legs syndrome) 06/25/2025 External Device Data [facility] ABSTRACTION Provider, Abstract 06/17/[address] [address] El Stallworth MD Patient Communication 06/07/[address] [address] El Stallworth MD 06/04/[address] [phone] El Stallworth MD Chronic bilateral low back pain with bilateral sciatica; Chronic neck pain; Chronic right shoulder pain; Neuropathy 05/28/2025 External Device Data [facility] ABSTRACTION Provider, Abstract 05/14/[address] [address] El Stallworth MD Chronic bilateral low back pain with bilateral sciatica; Chronic neck pain; Primary osteoarthritis of right knee; Bilateral rotator cuff syndrome; Chronic right shoulder pain; Neuropathy 05/10/2025 Results Follow-Up [address] [address] Mariana Liao FNP HSV TYPE 1 AND 2 IGG ANTIBODY, GC/CHLAMYDIA, UROGENITAL, HIV DETECTION W/REFLX CONFIRMATION, HSV BY PCR 05/08/2025 3:20 PM CDT Office Visit [address] [address] Mariana Liao FNP Tongue burning sensation (Primary Dx); Screen for STD (sexually transmitted disease) 05/08/2025 Nurse Triage [address] [address] El Stallworth MD 05/01/2025 External Device Data [facility] ABSTRACTION Provider, Abstract 04/30/2025 External Device Data [facility] ABSTRACTION Provider, Abstract 04/11/[address] [address] El Stallworth MD Medication Assistance 04/05/[address] [address] El Stallworth MD Hypogonadism in male; Chronic bilateral low back pain with bilateral sciatica; Chronic neck pain; Primary osteoarthritis of right knee; Bilateral rotator cuff syndrome from Last 3 Months Immunizations Immunization Administration Dates Next Due (RABAVERT)(ALL AGES) RABIES VACCINE, FIBROBLAST, 1ML, IM 01/08/2025,01/04/2025,01/01/2025 Family History Medical History Relation Name Comments Alzheimer's Disease Mother Colon Cancer Neg Hx Relation Name Status Comments Mother Social History Tobacco Use Types Packs/Day Years Used Date Smoking Tobacco: Former Cigarettes Q uit: 2023 Passive Smoke Exposure: Never Smokeless Tobacco: Never Tobacco Cessation:Counseling Given: No Alcohol Use Standard Drinks/Week Comments Yes 0 (1 standard drink = 0.6 oz pur e alcohol) Occasional Feeling Safe Answer Date Recorded Are you in a relationship wi th someone who hurts you emotionally and/or physically? No 11/12/2024 Sex and Gender Information Value Date Recorded Sex Assigned at Not on file Legal Sex Male 1:13 PM SEARCH COORDINATOR Gender Identity Not on file Sexual Orientation Not on file Last Filed Vital Signs Vital Sign Reading Time Taken Comments Blood Pressure 118/58 05/08/2025 3:21 PM CDT Pulse 83 05/08/2025 3:21 PM CDT Temperature 36.8 C (98.3 F) 05/08/2025 3:21 PM CDT Respiratory Rate 16 05/08/2025 3:21 PM CDT Oxygen Saturation 96% 05/08/2025 3:21 PM CDT Inhaled Oxygen Concentration - - Weight 95.3 kg (210 lb 2 oz) 05/08/2025 3:21 PM CDT Height 177.8 cm (5' 10 ) 05/08/2025 3:21 PM CDT Body Mass Index 30.15 05/08/2025 3:21 PM CDT Plan of Treatment Health Maintenance Due Date Last Done Comments Pre-Diabetes and Diabetes Screening 1970 DTAP/TDAP/TD VACCINES (1 - Tdap) 1989 HEPATITIS B VACCINES (1 of 3 - 19+ 3-dose series) 03/13 Preventative Visit-Managed Medicaid 1989 COLORECTAL SCREENING 2015 Colorectal Cancer Screening 2015 FIT-DNA Q 3 years 2015 FIT/FOBT Q 1 year 2015 Flex Sig/CT Colonography Q 5 years 2015 ZOSTER VACCINE (1 of 2) 2020 INFLUENZA VACCINE (#1) 2025 Procedures Procedure Name Priority Date/Time Associated Diagnosis Comments HIV DETECTION W/REFLX CONFIRMATION Routine 05/08/2025 3:45 PM CDT Screen for STD (sexually transmitted disease) HSV TYPE 1 AND 2 IGG ANTIBODY Routine 05/08/2025 3:45 PM CDT Screen for STD (sexually transmitted disease) GC/CHLAMYDIA, UROGENITAL Routine 05/08/2025 3:45 PM CDT Screen for STD (sexually transmitted disease) HSV BY PCR Routine 05/08/2025 3:34 PM CDT Tongue burning sensation from Last 3 Months Results * GC/CHLAMYDIA, UROGENITAL (05/08/2025 3:45 PM CDT) CHLAMYDIA TRACHOMATIS RNA, TMA, UROGENITAL NOT DETECTED NOT DETECTED [facility] NEISSERIA GONORRHOEAE RNA, TMA, UROGENITAL NOT DETECTED NOT DETECTED [facility] COMMENT INFECTIOUS DISEASE [facility] Comment: The analytical performance characteristics of this assay, when used to test SurePath(TM) specimens have been determined by [facility]. The modifications have not been cleared or approved by the FDA. This assay has been validated pursuant to the CLIA regulations and is used for clinical purposes. For additional information, please refer to https://education.RazorGator/faq/EHW949 (This link is being provided for information/ educational purposes only.) Test Performed at: [facility] [address] [place] [address] Jonathan Bolanos MD Urine (Urine, 1st catch) 05/08/2025 3:45 PM CDT 05/09/2025 3:33 AM CDT Mariana HARRISONP MICROBIOLOGY - GENERAL O RDERABLES Final Result [facility] [phone] [facility] [address] [place] [address] * HIV DETECTION W/REFLX CONFIRMATION (05/08/2025 3:45 PM CDT) QUEST RESULT [facility] Comment: Quest component Name and Code: HIV FINAL INTERPRETATION [[id number]] HIV Negative HIV-1 antigen and HIV-1/HIV-2 antibodies were not detected. There is no laboratory evidence of HIV infection. HIV-1/2 AG AND AB SCREEN NON-REACT ROSALBA NON-REACT ROSALBA [facility] Comment: Test Performed at: [facility] [address] [facility] [place] [address] Jonathan Bolanos MD Blood 05/08/2025 3:45 PM CDT 05/09/2025 3:37 AM CDT Mariana Liao [facility] CHEMISTRY ORDERABLES Fin al Result [facility] [phone] [facility] [address] [facility] [place] [address] * (ABNORMAL) HSV TYPE 1 AND 2 IGG ANTIBODY (05/08/2025 3:45 PM CDT) [facility] HSV1 IGG 28.60(H) index [facility] HSV2 IGG 2.87(H) index [facility] Comment: Index Interpretation ----- <0.90 Negative 0.90-1.09 Equivocal >1.09 Positive Low HSV-2 IgG positive results (index values between 1.10-3.00) may represent false positive results. CDC 2021 guidelines recommend confirmatory testing of samples with low-positive HSV-2 IgG results. If clinically indicated, consider adding on HSV-2 IgG Inhibition, by contacting [facility]. For additional information, please refer to: https://www.RazorGator/healthcare- professionals/ogwywpnt-vafrwfmml-ldkrtx/faq/faq43 (This link is being provided for informational/ educational purposes only.) This assay utilizes recombinant type-specific antigens to differentiate HSV-1 from HSV-2 infections. A positive result cannot distinguish between recent and past infection. If recent HSV infection is suspected but the results are negative or equivocal, the assay should be repeated in 4-6 weeks. The performance characteristics of the assay have not been established for pediatric populations, immunocompromised patients, or screening. For additional information, please refer to http://education.Allegorithmic/faq/ATZ387 (This link is being provided for informational/ educational purposes only.) Test Performed at: [facility] [address] [place] [address] Jonathan Bolanos MD Blood 05/08/2025 3:45 PM CDT 05/09/2025 3:37 AM CDT Mariana Liao DIRECTOR OF ANCILLARY SERVICES CHEMISTRY ORDERABLES COM Final Result Performing Organization Address City/[facility] Phone Number [facility] [phone] [facility] [address] [place] [address] * HSV BY PCR (05/08/2025 3:34 PM CDT) [facility] HSV PCR SOURCE *ORAL [facility] HSV 1 DNA Not Detected Not Detected [facility] HSV 2 DNA Not Detected Not Detected [facility] Comment: (Note) This test was developed and its analytical performance characteristics have been determined by [facility]. It has not been cleared or approved by the U.S. Food and Drug Administration. This assay has been validated pursuant to the CLIA regulations and is used for clinical purposes. [facility] [address] [address],[address] [facility] [address] David Gonzales MD, PhD Test Performed at: [facility] [address] [facility] [address] [place] [address] David Gonzales MD,PhD Upper Respiratory (Oral) 05/08/2025 3:34 PM CDT 05/09/2025 4:58 AM CDT Mariana HARRISONP BODY FLUIDS AND STOOLS F inal Result [facility] [phone] [facility] [address] [facility] [address], [address] [place] [address] from Last 3 Months Insurance [place]ICAID [place] Care Teams Board Mixer Tender Relationship Specialty Start Date End Date El Stallworth MD [address] [facility] [address] [place] [address] PCP - General Family Practice 08/15/24
--- OUTSIDE RECORDS SUMMARY | 2025-07-03 18:46 | XMS_ITS | Encounter Summary ---
Author Organization [facility] Address [address] [place] [address] Care Team Providers Care Manager Math Name Role Phone El Stallworth MD Primary Care Provider [phone] Encounter Details Date Type Department Care Team (Late st Contact Info) Description 06/25/2025 External Device Data [facility] ABSTRACTION Provider, Abstract NO ADDRESS ON FILE Social History Tobacco Use Types Packs/Day Years Used Date Smoking Tobacco: Former Cigarettes Q uit: 2023 Passive Smoke Exposure: Never Smokeless Tobacco: Never Alcohol Use Standard Drinks/Week Comments Yes 0 (1 standard drink = 0.6 oz pur e alcohol) Occasional Feeling Safe Answer Date Recorded Are you in a relationship wi th someone who hurts you emotionally and/or physically? 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
--- OUTSIDE RECORDS SUMMARY | 2025-07-03 18:46 | XMS_ITS | Encounter Summary ---
Author Organization [facility] Address [address] [place] [address] Care Team Providers Care Spice Blender Name Role Phone El Stallworth MD Primary Care Provider [phone] Encounter Details Date Type Department Care Team (Late st Contact Info) Description 07/02/2025 External Device Data [facility] ABSTRACTION [...] on file Legal Sex Male 1:13 PM OUTREACH REP Gender Identity Not on file Sexual Orientation Not on file documented as of this encounter Plan of Treatment Not on file documented as of this encounter Visit Diagnoses Not on filedocumented in this encounter Care Teams Spice Blender Relationship Specialty Start Date End Date El Stallworth MD [address] [facility] [address] [place] [address] PCP - General Family Practice 08/15/24 documented as of this encounter
--- OUTSIDE RECORDS SUMMARY | 2025-07-03 18:46 | XMS_ITS | Encounter Summary ---
Author Organization [facility] Address 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 Topic: Medication Request >> Jul 02, 2025 2:24 PM Debbi Green wrote: Caller Name: Carter Silveira Callback Number: Telephone Information: Medication (Ask patient/caregiver to spell if possible): rOPINIRole (REQUIP) 2 mg Tablet HYDROcodone-acetaminophen (NORCO) 7.5-325 mg Tablet Note: All medication prescriptions can be requested using one [facility] Preferred Pharmacy: The patient's preferred pharmacy is [facility] [address] [place] [address] Call Notes: Medication Refill Did caller contact the correct clinic for prescribing provider? Yes Ask caller if the refill is for a controlled medication. Is this for a controlled Medication? Yes Is there an encounter open? No documented in this encounter Plan of Treatment Not on file documented as of this encounter Visit Diagnoses Diagnosis RLS (restless legs syndrome) Restless legs syndrome (RLS) documented in this encounter Care Teams Construction Contractor Relationship Specialty Start Date End Date El Stallworth MD [address] [phone] PCP - General Family Practice 08/15/24 documented as of this encounter
== END 2025-07-03 18:15 | disposition home or self-care (01) ==
PROVIDERS: Emergency Provider Emergency Medicine; PCP Family Medicine
DX: T23.111A Burn of first degree of right thumb (nail), initial encounter (principal); Z87.891 Personal history of nicotine dependence; X08.8XXA Exposure to other specified smoke, fire and flames, initial encounter
CPT/HCPCS: 99283; J9999

== ENCOUNTER → 2025-07-16 14:49 | Outpatient (BNVA) | payer MEDICAID, SELFPAY | PROVIDERS: PCP Family Medicine; Visit Provider Student in an Organized Health Care Education/Training Program | DX: M75.101 Unspecified rotator cuff tear or rupture of right shoulder, not specified as traumatic (principal); S49.91XA Unspecified injury of right shoulder and upper arm, initial encounter; X58.XXXA Exposure to other specified factors, initial encounter | CPT/HCPCS: 20610; 99213; J3301; J9999 ==

== ENCOUNTER → 2025-08-14 13:41 | Outpatient (BNVA) | payer MEDICAID, SELFPAY | PROVIDERS: PCP Family Medicine; Visit Provider Student in an Organized Health Care Education/Training Program | DX: M17.11 Unilateral primary osteoarthritis, right knee (principal); Z01.89 Encounter for other specified special examinations | CPT/HCPCS: 73560; 73565; 99214 ==